=== PATIENT | female | born 1945 | race Caucasian/White ===

== ENCOUNTER 2019-01-06 19:42 | Emergency (ER) | payer OTHER, MEDICAID ==
[~2019-01-06] VITALS: Ht 149.9 cm; Wt 60.8 kg
[2019-01-06 19:47] VITALS: BP 158/66; Ht 149.9 cm; Wt 60.8 kg
== END 2019-01-06 22:09 | disposition home or self-care (01) ==
LOC: ED 19:42
DX: S43.401A Unspecified sprain of right shoulder joint, initial encounter (principal); E78.00 Pure hypercholesterolemia, unspecified; X50.0XXA Overexertion from strenuous movement or load, initial encounter; Y93.89 Activity, other specified; Y92.89 Other specified places as the place of occurrence of the external cause; Y99.8 Other external cause status